=== PATIENT | female | born 2000 ===

== ENCOUNTER 2022-11-19 11:50 | Emergency (ER) | payer OTHER ==
[~2022-11-19] VITALS: Ht 172.7 cm; Wt 55.8 kg
[~2022-11-19 11:50] MED LIST: MUCINEX DM1 TAB.SR . PO; OSEL75CA PO
[2022-11-19] MEDS ORDERED: PRENA1 CHEW TA1.4 MG PO (12:08)
== END 2022-11-19 18:10 | disposition home or self-care (01) ==
LOC: ER 11:50
PROVIDERS: Emergency Medicine
DX: O26.891 Other specified pregnancy related conditions, first trimester (principal); Z3A.10 10 weeks gestation of pregnancy; N89.8 Other specified noninflammatory disorders of vagina